=== PATIENT | female | born 1990 | race Two or more races ===

== ENCOUNTER 2021-08-31 07:58 | Outpatient (CLI) | payer OTHER | END 2021-08-31 08:08 | disposition home or self-care (01) | LOC: LAB 07:58 | DX: R42 Dizziness and giddiness (principal); Z12.11 Encounter for screening for malignant neoplasm of colon; Z00.00 Encounter for general adult medical examination without abnormal findings ==

== ENCOUNTER → 2022-11-05 11:37 | Outpatient (CLI) | payer OTHER | END | disposition home or self-care (01) | LOC: LAB 11:37 | DX: D50.8 Other iron deficiency anemias (principal); N39.0 Urinary tract infection, site not specified; E07.89 Other specified disorders of thyroid; I11.9 Hypertensive heart disease without heart failure; E78.3 Hyperchylomicronemia; E55.9 Vitamin D deficiency, unspecified; N95.1 Menopausal and female climacteric states; L68.0 Hirsutism ==

== ENCOUNTER 2023-08-04 18:58 | Emergency (ER) | payer OTHER ==
[~2023-08-04] VITALS: Ht 170.2 cm; Wt 65.8 kg
== END 2023-08-04 20:24 | disposition home or self-care (01) ==
LOC: ER 18:58
DX: R05.9 Cough, unspecified (principal)

== ENCOUNTER 2025-02-08 08:05 | Outpatient (CLI) | payer OTHER ==
[2025-02-08 09:05] LABS: PH,URINE 5.5 (5.0-8.0); URINE APPEARANCE Clear; URINE BILIRRUBIN Negative (NEGATIVE); URINE BLOOD Negative; URINE COLOR Yellow; URINE GLUCOSE Negative (NEGATIVE); URINE KETONE Negative (NEGATIVE); URINE LEUKOCYTE Negative; URINE NITRATE Negative; URINE PROTEIN Negative (NEGATIVE); URINE UROBILINOGEN 0.2 E.U./dl
[2025-02-08 09:06] LABS: BASO % 1.1 % (0.1-1.2); EOS # 0.15 (0.04-0.54); EOS % 3.3 % (0.7-7.0); HEMATOCRIT 41.1 % (34.1-44.9); HEMOGLOBIN 14.1 g/dL (11.2-15.7); LYMPH # 1.19 (1.18-3.74); LYMPH % 26.1 % (19.3-53.1); MEAN CORPUSCULAR HEMOGLOBIN 30.3 pg (25.6-32.2); MONO # 0.44 (0.24-0.82); MONO % 9.6 % (4.7-12.5); NEUT # 2.73 (1.56-6.13); NEUT % 59.9 % (34.0-71.1); PLATELET COUNT 270 K/uL (163-369); RED BLOOD COUNT 4.65 M/uL (3.93-5.22); RED CELL DISTRIBUTION WIDTH 12.7 % (11.6-14.4); URINE BACTERIA 144.3 uL (0.0-1933); URINE EPITHELIAL CELLS 8.2 uL (0.0-38.8)
[2025-02-08 09:19] LABS: URINE WBC 1.2 uL (0.0-23.2)
[2025-02-08 09:43] LABS: ALBUMIN 4.1 gm/dL (3.4-5.0); BILIRUBIN TOTAL 1.25 mg/dL (0.3-1.2); CALCIUM 9.3 mg/dL (8.5-10.1); CHOL HDL RATIO 2.3 (0-5.0); CREATININE SERUM 0.87 mg/dL (0.55-1.02); GFR 74.09; GLOBULINA 3.5 G/DL (2.4-3.5); POTASSIUM 4.18 mEq/L (3.5-5.1); TOTAL PROTEIN 7.6 gm/dL (6.4-8.2)
[2025-02-08 10:37] LABS: ob NEGATIVE (NEGATIVE)
== END 2025-02-08 08:06 | disposition home or self-care (01) ==
LOC: LAB 08:05
DX: Z76.0 Encounter for issue of repeat prescription (principal)